=== PATIENT | female | born 1970 | race Caucasian/White ===

== ENCOUNTER 2018-04-08 06:50 | Emergency (ER) | payer BC ==
[2018-04-08] MEDS ORDERED: ONDANSETRON HCL INJ/PF 4 MG/2 ML SDV IV ONE (07:07)
[2018-04-08] MEDS ORDERED: NORMAL SALINE 1000 ML 1,000 ML IV PRN (07:07)
--- NOTE | 2018-04-08 07:19 | ER Document Report ---
ED General - General Chief Complaint: Nausea/Vomiting/Diarrhea Stated Complaint: VOMITING/ABDOMINAL PAIN Time Seen by Provider: 04/08/18 07:06 TRAVEL OUTSIDE OF THE [place] IN LAST 30 DAYS: No - HPI Notes: Patient is a 47-year-old female with a history of type 2 diabetes who presents to the emergency department complaining of nausea, vomiting, and watery diarrhea over the last 1-2 days. Patient states that she will have some abdominal cramping during that time, but otherwise does not have any focal pain. Patient states that every 2 months she has episodes of cramping and nausea as well as loose stool. Patient states that this has been going on since 2017, and has not been seen by any specialist for this issue. Patient states that this is a little more severe than her normal which brought her to the emergency department today. She has not noticed any melena or hematochezia. She is still able to eat and drink, but does have a decreased p.o. intake. She has a surgical history of as well as cholecystectomy. Denies drug allergies. No other concerns or complaints. Denies any headache, fever, URI, sore throat, chest pain, palpitations, syncope, cough, shortness of breath, wheeze, dyspnea, urinary retention, dysuria, hematuria, back pain, loss of control of bowel or bladder, numbness/tingling, or rash. - Related Data Allergies/Adverse Reactions: acetaminophen [From Vicodin] Adverse Reaction (Verified 04/08/18 08:27) VOMITING hydrocodone [From Vicodin] Adverse Reaction (Verified 04/08/18 08:27) VOMITING Past Medical History - Social History Smoking Status: Never Smoker Family History: Reviewed & Not Pertinent Review of Systems - Review of Systems -: Yes All other systems reviewed and negative Physical Exam - Vital signs Vitals: Temp Pulse Resp BP Pulse Ox 97.6 F 108 H 18 148/73 H 98 04/08/18 06:54 04/08/18 06:54 04/08/18 06:54 04/08/18 06:54 04/08/18 06:54 - Notes Notes: PHYSICAL EXAMINATION: GENERAL: Well-appearing, well-nourished and in no acute distress. HEAD: Atraumatic, normocephalic. EYES: Pupils equal round and reactive to light, extraocular movements intact, sclera anicteric, conjunctiva are normal. ENT: Nares patent and without discharge. oropharynx clear without exudates. No tonsilar hypertrophy or erythema. Moist mucous membranes. NECK: Normal range of motion, supple without lymphadenopathy LUNGS: Breath sounds clear to auscultation bilaterally and equal. No wheezes rales or rhonchi. HEART: Regular rate and rhythm without murmurs, rubs, gallops. ABDOMEN: Soft, nontender, nondistended abdomen. No guarding, no rebound. No masses appreciated. Normal bowel sounds present. No CVA tenderness bilaterally. No tenderness at [place]. Musculoskeletal: FROM to passive/active. Strength 5+/5. Extremities: No cyanosis, clubbing, or edema b/l. Peripheral pulses 2+. Capillary refill less than 3 seconds. NEUROLOGICAL: normal speech, normal gait. PSYCH: Normal mood, normal affect. SKIN: Warm, Dry, normal turgor, no rashes or lesions noted. Course - Re-evaluation Re-evalutation: 04/08/18 09:37 Patient is an afebrile, well-hydrated, 47-year-old female who presents to the emergency department with GI symptoms consistent with a possible viral gastroenteritis. I do suspect that the patient may have an underlying irritable bowel syndrome or other undiagnosed GI etiology as she has recurrent abdominal symptoms over the last year and a half. She has not had any evaluation with a specialist or colonoscopy/endoscopy. Vitals are currently acceptable without significant tachycardia, tachypnea, or hypoxia. PE is otherwise unremarkable. CBC, CMP, lipase, urinalysis, hCG are all unremarkable/acceptable. Patient did receive fluids and nausea medicine. She has not had any episodes of emesis or loose stool throughout her stay. Patient is nontoxic-appearing and is able to tolerate p.o. without difficulty at this time. No further labs or imaging warranted. Low suspicion/risk for acute appendicitis, bowel obstruction, acute cholecystitis, acute cholangitis, perforated diverticulitis, incarcerated hernia, pancreatitis, perforated ulcer, peritonitis, sepsis, pelvic inflammatory disease, ectopic , tubo-ovarian abscess, ovarian torsion, or other systemic emergent condition at this time. Patient is aware that her condition can change from initial presentation and she needs to monitor symptoms closely and seek medical attention if any acute changes. Rx for zofran. Conservative measures otherwise for symptoms. Recheck with your PCM in 2-3 days. Schedule a consult with a hand tube winder. Return to the ED with any worsening/concerning symptoms otherwise as reviewed in discharge. Patient is in agreement. - Vital Signs Vital signs: Temp Pulse Resp BP Pulse Ox 97.6 F 108 H 17 148/73 H 98 04/08/18 06:54 04/08/18 06:54 04/08/18 08:03 04/08/18 06:54 04/08/18 06:54 - Laboratory Result Diagrams: 04/08/18 08:00 04/08/18 08:00 Laboratory results interpreted by me: 04/08/18 04/08/18 04/08/18 07:40 08:00 08:00 WBC 11.3 H RBC 5.29 H Hgb 15.6 H RDW 15.5 H Potassium 3.5 L Glucose 144 H Urine Protein 100 H Urine Blood SMALL H Urine Bilirubin SMALL H Urine Urobilinogen 2.0 H Ur Leukocyte Esterase TRACE H Urine Ascorbic Acid 20 H Discharge - Discharge Clinical Impression: Nausea vomiting and diarrhea Condition: Stable Disposition: HOME, SELF-CARE Instructions: Diarrhea, Nonspecific ([facility]), Vomiting ([facility]), Antinausea Medication ([facility]) Additional Instructions: Maintain adequate fluid and food intake Cochrane diet ([employer] Bananas, rice, apples, toast, etc Zofran as needed tylenol if needed Monitor for any worsening symptoms Make sure you are staying hydrated enough to urinate and have normal BM's Recheck with your PCM in 2-3 days Schedule consult with gastroenterology for further evaluation and management as you may have an underlying gastroenterology issue, but I do suspect this to be a viral component at this time. Return to the ED with any worsening symptoms and/or development of fever, headache, chest pain, palpitations, syncope, shortness of breath, trouble breathing, abdominal pain, n/v/d, blood in stool/urine, weakness, or other worsening symptoms that are concerning to you. Prescriptions: Ondansetron [Zofran Odt 4 mg Tablet] 1 - 2 tab PO Q4H PRN #15 tab.rapdis PRN Reason: For Nausea/Vomiting Forms: Elevated Blood Pressure Referrals: PRINCESS CROUCH MD [ACTIVE STAFF] - Follow up as needed JOSE LEVIN MD [ACTIVE STAFF] - Follow up as needed
[2018-04-08 08:20] LABS: ABSOLUTE EOSINOPHILS # (AUTO) 0.2 10^3/uL (0.0-0.6); ABSOLUTE LYMPHOCYTES (AUTO) 2.2 10^3/uL (0.5-4.7); ABSOLUTE MONOCYTES (AUTO) 1.1 10^3/uL (0.1-1.4); ABSOLUTE NEUT (AUTO) 7.8 10^3/uL (1.7-8.2); BASOPHILS % (AUTO) 0.3 % (0-2); EOSINOPHILS % (AUTO) 1.8 % (0-6); HEMATOCRIT 45.1 % (36.0-47.0); HEMOGLOBIN 15.6 g/dL (12.0-15.5); LYMPHOCYTES % (AUTO) 19.3 % (13-45); MEAN CORPUSCULAR HEMOGLOBIN 29.4 pg (27.0-33.4); MEAN CORPUSCULAR HGB CONC 34.5 g/dL (32.0-36.0); MEAN CORPUSCULAR VOLUME 85 fl (80-97); MONOCYTES % (AUTO) 9.7 % (3-13); PLATELET COUNT 190 10^3/uL (150-450); RED BLOOD COUNT 5.29 10^6/uL (3.72-5.28); RED CELL DISTRIBUTION WIDTH 15.5 % (11.5-14.0); SEGMENTED NEUTROPHILS % (AUTO) 68.9 % (42-78); TOTAL CELLS COUNTED % (AUTO) 100 %; WHITE BLOOD COUNT 11.3 10^3/uL (4.0-10.5)
[2018-04-08 08:34] LABS: APPEARANCE,URINE CLOUDY; BILIRUBIN,URINE SMALL (NEGATIVE); GLUCOSE, URINE NEGATIVE (NEGATIVE); KETONES,URINE NEGATIVE (NEGATIVE); LEUKOCYTE ESTERASE,URINE TRACE (NEGATIVE); NITRITE,URINE NEGATIVE (NEGATIVE); PROTEIN,URINE 100 mg/dL (NEGATIVE); URINE SPECIFIC GRAVITY 1.032
[2018-04-08 08:37] LABS: COLOR,URINE DARK YELLOW
[2018-04-08 08:41] LABS: ALANINE AMINOTRANSFERASE 32 U/L (9-52); ALBUMIN 4.2 g/dL (3.5-5.0); ALKALINE PHOSPHATASE 80 U/L (38-126); ANION GAP 12 (5-19); ASPARTATE AMINO TRANSFERASE 20 U/L (14-36); BILIRUBIN,DIRECT 0.3 mg/dL (0.0-0.4); BILIRUBIN,TOTAL 0.7 mg/dL (0.2-1.3); BLOOD UREA NITROGEN 17 mg/dL (7-20); CARBON DIOXIDE 28 mmol/L (22-30); CHLORIDE 98 mmol/L (98-107); GLUCOSE 144 mg/dL (75-110); LIPASE 54.4 U/L (23-300); POTASSIUM 3.5 mmol/L (3.6-5.0); SODIUM 138.4 mmol/L (137-145)
[2018-04-08] MEDS ORDERED: DICYCLOMINE HCL 20 MG TABLET PO ONE (09:40)
[2018-04-08 10:50] VITALS: BP 138/71
== END 2018-04-08 10:51 | disposition home or self-care (01) ==
LOC: ER 06:50
DX: R11.2 Nausea with vomiting, unspecified (principal); R19.7 Diarrhea, unspecified; R10.9 Unspecified abdominal pain; E11.9 Type 2 diabetes mellitus without complications; Z90.49 Acquired absence of other specified parts of digestive tract
CPT/HCPCS: 99284; 96361; 96374; 36415; 87086; 83690; 85025; 81025; 80053; 81001; J3490; J2405; J7030

== ENCOUNTER → 2018-05-02 | Outpatient (CLI) | payer BC ==
--- NOTE | 2018-05-02 14:33 | RADIOLOGY REPORT (SQ) ---
EXAM DESCRIPTION: NM GASTRIC EMPTYING STUDY COMPLETED DATE/TIME: 05/02/2018 1:08 pm REASON FOR STUDY: BLOATING (R14.0), EPIGASTRIC PAIN (R10.13) R14.0 ABDOMINAL DISTENSION (GASEOUS) R 10.13 EPIGASTRIC PAIN COMPARISON: None. RADIONUCLIDE AND DOSE: 2 millicuries Tc-99m Sulfur Colloid. A wide variety of solid foods have been used. The route of agent administration: Oral. TECHNIQUE: 1 minute serial static imaging performed at time of meal, 1 hour, 2 hours, 3 hours, and 4 hours as needed. Once stomach reaches 90% emptying, the test is complete. Image intensity values pl otted with respect to time with linear regression algorithm. LIMITATIONS: None. FINDINGS: Patient was observed for 4 hours. Immediate post meal serves as baseline. Gastric emptying at 60 minutes was 12.93%. Gastric emptying at 90 minutes was 23.16% Gastric emptying at 120 minutes was 31.57% Gastric emptying at 180 minutes was 39.07%. Gastric emptying at 240 minutes was 52.5%. Normal values: 60 minutes: 30-90% retained. If less than 30%, abnormally rapid emptying. If greater than 90%, del ayed gastric emptying. 120 minutes: <60% retained. If greater than 60%, delayed gastric emptying. 240 minutes: <10% retained. If greater than 10%, delayed gastric emptying. IMPRESSION: Delayed gastric emptying. Greater than 10% retained 240 minutes. TECHNICAL DOCUMENTATION: JOB ID: [id number] [employer]- All Rights Reserved rev-08/10 Reading location - IP/workstation name: [email or web address]
== END ==
LOC: RAD 07:12
PROVIDERS: ATTEND Internal Medicine Gastroenterology
DX: K30 Functional dyspepsia (principal); R14.0 Abdominal distension (gaseous)
CPT/HCPCS: 78264; A9541

== ENCOUNTER → 2020-02-13 | Outpatient (CLI) | payer BC ==
--- NOTE | 2020-02-13 17:45 | RADIOLOGY REPORT (SQ) ---
EXAM DESCRIPTION: VENOUS UNILATERAL LOWER IMAGES COMPLETED DATE/TIME: 02/13/2020 4:47 pm REASON FOR STUDY: LLE SWELLING R60.0 LOCALIZED EDEMA COMPARISON: None. TECHNIQUE: Dynamic and static valencia scale and color images acquired of the left leg venous system. Se lected spectral images acquired with additional compression and augmentation maneuvers. The contralat eral common femoral vein and saphenofemoral junction were also imaged. Images stored on PACS. LIMITATIONS: None. FINDINGS: COMMON FEMORAL: Normal phasicity, compression and augmentation. No visualized echogenic ma terial on valencia scale. No defects on color images. FEMORAL: Normal compression and augmentation. No visualized echogenic material on valencia scale. No defe cts on color images. POPLITEAL: Normal compression, augmentation. No visualized echogenic material on valencia scale. No defec ts on color images. CALF VESSELS: Normal compression, augmentation. No visualized echogenic material on valencia scale. No de fects on color images. GSV and SSV: Normal compression, augmentation. No visualized echogenic material on valencia scale. No def ects on color images. ANY DEEP VENOUS INSUFFICIENCY: Not evaluated. ANY EVIDENCE OF POPLITEAL CYST: No. OTHER: No other significant finding. CONTRALATERAL COMMON FEMORAL VEIN AND SAPHENOFEMORAL JUNCTION: Normal phasicity, compression and augmentation. No visualized echogenic material on valencia scale. No de fects on color images. IMPRESSION: NO EVIDENCE OF DVT OR SVT IN THE LEFT LEG. TECHNICAL DOCUMENTATION: JOB ID: [id number] [employer]- All Rights Reserved Reading location - IP/workstation name: [email or web address]
== END ==
LOC: SP 14:32
PROVIDERS: ATTEND Physician Assistant
DX: R60.0 Localized edema (principal)
CPT/HCPCS: 93971